=== PATIENT | female | born 1970 | race Caucasian/White ===

== ENCOUNTER 2023-05-12 10:58 | Emergency (ER) | payer SELFPAY ==
[~2023-05-12] VITALS: Ht 162.6 cm; Wt 59.0 kg
[2023-05-12 11:40] LABS: Basophils # (auto) 0 10 ^3/uL (0-0.2); Basophils % (auto) 0.4 % (0.0-2.0); Eosinophils # (auto) 0.1 10 ^3/uL (0-0.8); Eosinophils % (auto) 0.8 % (0.0-7.0); Hemoglobin 14.5 g/dL (12.2-16.2); Lymphocytes # (auto) 1.6 10 ^3/uL (0.4-5.4); Lymphocytes % (auto) 17.5 % (10.0-50.0); Mean Corpuscular Hemoglobin 31.9 pg (28.0-32.0); Mean Corpuscular Volume 96.8 fL (80.0-100.0); Monocytes # (auto) 0.5 10 ^3/uL (0-1.3); Monocytes % (auto) 5.9 % (0.0-12.0); Neutrophils # (auto) 6.7 10 ^3/uL (1.6-8.6); Neutrophils % (auto) 75.4 % (37.0-80.0); Red Blood Cells 4.54 10^6/uL (4.0-5.20); Red Cell Distribution Width 13.6 % (11.8-14.3); White Blood Cell 8.9 10^3/uL (4.4-10.8)
[2023-05-12 12:29] LABS: Alanine Aminotransferase 72 U/L (7-40); Albumin 4.3 g/dL (3.2-4.8); Alkaline Phosphatase 92 U/L (46-116); Anion Gap 6 (5-15); Aspartate Aminotransferase 45 U/L (13-40); BUN/Creatinine Ratio 24.6 (10.0-20.0); Bilirubin, Total 0.5 mg/dL (0.2-1.0); Blood Urea Nitrogen 17 mg/dL (9-23); Carbon Dioxide 28 mmol/L (20-30); Chloride 107 mmol/L (98-107); Creatine Kinase IFCC 34 U/L (34-145); Glucose 105 mg/dL (74-106); Potassium 4.4 mmol/L (3.5-5.1); Sodium 141 mmol/L (136-145)
[2023-05-12] MEDS ORDERED: SODIUM CHLORIDE 0.9% 1,000 ML IV ONE (12:45)
[2023-05-12 13:27] LABS: Magnesium 1.9 mg/dL (1.6-2.6)
[2023-05-12 15:02] LABS: Urine Amorphous Crystal FEW /hpf (None Seen); Urine Bacteria MANY /hpf (None Seen); Urine Blood Negative /uL (Negative); Urine Clarity HAZY (Clear); Urine Color Yellow (Yellow); Urine Mucus MANY (None Seen); Urine Protein, UAD TRACE (Negative); Urine Specific Gravity 1.023 (1.001-1.035); Urine WBC 43 /hpf (0 - 5)
[2023-05-12 15:19] LABS: Amphetamine Screen, Urine Neg (NEGATIVE); Barbiturate Scree,Urine Neg (NEGATIVE); Benzodiazephine Screen, Urine Neg (NEGATIVE); Cannabinoid Screen, Urine Neg (NEGATIVE); Cocaine Screen, Urine Neg (NEGATIVE); Opiate Scree,Urine Neg (NEGATIVE); Phencyclidine Screen, Urine Neg (NEGATIVE)
[2023-05-12] MEDS ORDERED: cefTRIAXone 1GM/50ML D5W 50 ML IV ONE (15:30)
[2023-05-12] MEDS ORDERED: NITR-87 PO (21:42)
[2023-05-13 01:18] VITALS: PULSE 89; RESP 18; O2SAT 98
[2023-05-13 08:00] VITALS: BP 142/89; PULSE 89; TEMP 98.4
[2023-05-13 11:35] VITALS: RESP 20; O2SAT 96
== END 2023-05-13 13:15 | disposition home or self-care (01) ==
LOC: EDBD 10:58 → ER 10:58
DX: N39.0 Urinary tract infection, site not specified (principal); I10 Essential (primary) hypertension; Z59.00 Homelessness unspecified; Z90.49 Acquired absence of other specified parts of digestive tract
CPT/HCPCS: 36415; 80053; 80307; 81001; 82550; 83605; 83735; 84484; 85025; 93005; 96361; 96374; 99285; J0696; J7030

== ENCOUNTER 2023-10-31 20:14 | Emergency (ER) | payer MEDICAID, OTHER ==
[~2023-10-31] VITALS: Ht 167.6 cm; Wt 72.7 kg
[~2023-10-31 20:14] MED LIST: NITR-87 PO
[2023-10-31 20:56] LABS: Chloride 107 mmol/L (98-107); Potassium 4.4 mmol/L (3.5-5.1); Sodium 141 mmol/L (136-145)
[2023-10-31 20:57] LABS: Anion Gap 5 (5-15); Calcium 9.8 mg/dL (8.5-10.1); Carbon Dioxide 29 mmol/L (20-30)
[2023-10-31 21:01] LABS: Basophils # (auto) 0.1 10 ^3/uL (0-0.2); Basophils % (auto) 0.8 % (0.0-2.0); Eosinophils # (auto) 0.2 10 ^3/uL (0-0.8); Eosinophils % (auto) 2.1 % (0.0-7.0); Hematocrit 40.3 % (36.0-46.0); Hemoglobin 13.2 g/dL (12.2-16.2); Lymphocytes # (auto) 2.9 10 ^3/uL (0.4-5.4); Lymphocytes % (auto) 29.4 % (10.0-50.0); Mean Corpuscular Hemoglobin 30.7 pg (28.0-32.0); Mean Corpuscular Hgb Conc. 32.8 g/dL (32.0-36.0); Mean Corpuscular Volume 93.4 fL (80.0-100.0); Monocytes # (auto) 0.8 10 ^3/uL (0-1.3); Monocytes % (auto) 8.4 % (0.0-12.0); Neutrophils # (auto) 5.8 10 ^3/uL (1.6-8.6); Neutrophils % (auto) 59.3 % (37.0-80.0); Nucleated Red Blood Cells % 0.1 %; Red Blood Cells 4.32 10^6/uL (4.0-5.20); Red Cell Distribution Width 14.5 % (11.8-14.3); White Blood Cell 9.8 10^3/uL (4.4-10.8)
[2023-10-31 21:02] LABS: Blood Urea Nitrogen 11 mg/dL (9-23); Glucose 90 mg/dL (74-106)
[2023-11-01 00:02] VITALS: BP 108/56; PULSE 70; RESP 18; TEMP 97.8; O2SAT 97
== END 2023-11-01 00:07 | disposition home or self-care (01) ==
LOC: ER 20:14 → EDBD 20:14 → ER 11-01 00:07
DX: R53.1 Weakness (principal); Z79.899 Other long term (current) drug therapy
CPT/HCPCS: 36415; 80048; 85025; 93005

== ENCOUNTER 2023-12-04 18:08 | Emergency (ER) | payer MEDICAID ==
[~2023-12-04] VITALS: Ht 152.4 cm; Wt 55.0 kg
[2023-12-04 18:39] LABS: Basophils # (auto) 0.1 10 ^3/uL (0-0.2); Basophils % (auto) 0.7 % (0.0-2.0); Eosinophils # (auto) 0.2 10 ^3/uL (0-0.8); Eosinophils % (auto) 1.9 % (0.0-7.0); Hematocrit 39.2 % (36.0-46.0); Hemoglobin 12.4 g/dL (12.2-16.2); Lymphocytes # (auto) 2.4 10 ^3/uL (0.4-5.4); Lymphocytes % (auto) 21.2 % (10.0-50.0); Mean Corpuscular Hemoglobin 30.1 pg (28.0-32.0); Mean Corpuscular Hgb Conc. 31.6 g/dL (32.0-36.0); Mean Corpuscular Volume 95.2 fL (80.0-100.0); Monocytes # (auto) 0.7 10 ^3/uL (0-1.3); Monocytes % (auto) 5.9 % (0.0-12.0); Neutrophils % (auto) 70.3 % (37.0-80.0); Red Blood Cells 4.12 10^6/uL (4.0-5.20); Red Cell Distribution Width 13.7 % (11.8-14.3); White Blood Cell 11.4 10^3/uL (4.4-10.8)
[2023-12-04 18:48] LABS: Chloride 106 mmol/L (98-107); Potassium 3.9 mmol/L (3.5-5.1); Sodium 142 mmol/L (136-145)
[2023-12-04 18:49] LABS: Anion Gap 5 (5-15); Carbon Dioxide 31 mmol/L (20-30)
[2023-12-04 18:50] LABS: Calcium 10.1 mg/dL (8.5-10.1)
[2023-12-04 18:54] LABS: BUN/Creatinine Ratio 22.5 (10.0-20.0); Blood Urea Nitrogen 16 mg/dL (9-23); Glucose 88 mg/dL (74-106)
[2023-12-04] MEDS: SODIUM CHLORIDE 0.9% 1,000 ML IV ONE (21:24)
[2023-12-04] MEDS ORDERED: ACET500T58 PO (23:23)
[2023-12-04] MEDS ORDERED: IBUP-1455 PO (23:23)
[2023-12-04] MEDS: KETOROLAC TROMETH 60MG/2ML VIAL IM ONE (23:31)
[2023-12-04 23:35] VITALS: BP 118/64; PULSE 89; RESP 12; TEMP 98; O2SAT 95
== END 2023-12-04 22:34 | disposition home or self-care (01) ==
LOC: ER 18:08 → EDUNIT# 18:08 → EDBD 18:08 → ER 22:34
DX: G89.4 Chronic pain syndrome (principal); F15.10 Other stimulant abuse, uncomplicated; Z79.899 Other long term (current) drug therapy; Z59.00 Homelessness unspecified
CPT/HCPCS: 36415; 80048; 84484; 85025; 96372; 99283; J1885

== ENCOUNTER 2023-12-30 21:36 | Emergency (ER) | payer SELFPAY ==
[~2023-12-30] VITALS: Ht 162.6 cm; Wt 55.0 kg
[~2023-12-30 21:36] MED LIST changes: +ACET500T58 PO; +IBUP-1455 PO
[2023-12-31] MEDS: KETOROLAC TROMETH 30 MG/ML 1ML VIAL IM ONE (00:48)
[2023-12-31 00:53] VITALS: BP 114/58; PULSE 78; RESP 18; TEMP 98; O2SAT 98
== END 2023-12-31 00:55 | disposition home or self-care (01) ==
LOC: ER 21:36 → EDBD 21:36 → ER 12-31 00:55
DX: R51.9 Headache, unspecified (principal); R10.2 Pelvic and perineal pain; E11.9 Type 2 diabetes mellitus without complications; F15.90 Other stimulant use, unspecified, uncomplicated; Z59.00 Homelessness unspecified; Z79.899 Other long term (current) drug therapy
CPT/HCPCS: 36415; 72040; 84702; 96372; 99284; J1885